=== PATIENT | female | born 2000 | race Caucasian/White ===

== ENCOUNTER 2025-05-12 04:00 | Emergency (ER) | payer OTHER ==
[2025-05-12 04:56] LABS: APPEARANCE,URINE CLEAR (CLEAR); GLUCOSE,URINE NEGATIVE (NEGATIVE); OCCULT BLOOD,URINE NEGATIVE (NEGATIVE)
== END 2025-05-12 05:34 | disposition home or self-care (01) ==
LOC: LB.ED 04:00 → EDBD 04:00 → LB.ED 05:34
DX: S00.81XA Abrasion of other part of head, initial encounter (principal); Z91.013 Allergy to seafood; Z79.899 Other long term (current) drug therapy; W01.198A Fall on same level from slipping, tripping and stumbling with subsequent striking against other object, initial encounter
CPT/HCPCS: 70450; 72125; 81001; 99284; A9270-GY

== ENCOUNTER 2025-08-24 10:40 | Emergency (ER) | payer OTHER ==
[2025-08-24] MEDS: valACYclovir 1,000 MG Tab PO ONE (11:50)
[2025-08-28 03:36] LABS: HSV TYPE 1/2 COMBINED AB, IGG 4.60 IV (<=0.89)
[2025-08-28 13:15] LABS: HSV 2 GLYCOPROTEIN G AB, IGG 0.06 IV (<=0.89)
[2025-08-28 13:20] LABS: HSV 1 GLYCOPROTEIN G AB, IGG 2.57 IV (<=0.89)
== END 2025-08-24 12:00 | disposition home or self-care (01) ==
LOC: LB.ED 10:40
DX: R21 Rash and other nonspecific skin eruption (principal); Z20.2 Contact with and (suspected) exposure to infections with a predominantly sexual mode of transmission; Z91.013 Allergy to seafood; Z79.899 Other long term (current) drug therapy
CPT/HCPCS: 86694; 87491; 87591; 99283; A9270; 36415; 86695; 86696